=== PATIENT | female | born 1970 | race American Indian/Alaskan Native ===

== ENCOUNTER 2016-10-09 05:55 | Day surgery (SDC) | payer MEDICAID ==
[~2016-10-09 05:55] MED LIST: XYLOCAINE MPF 2% ONE
[2016-10-09] MEDS ORDERED: WATER FOR IRRIG STERILE IR ONE (07:01)
[2016-10-09] MEDS ORDERED: SUBLIMAZE ONE (07:20)
[2016-10-09] MEDS ORDERED: XYLOCAINE 1% 20 mL ONE (07:20)
[2016-10-09] MEDS ORDERED: DIPRIVAN 10 MG/ML IV ONE ×2 (07:20)
--- NOTE | 2016-10-09 07:22 | Anesthesia Consultation ---
Anesthesia Consult and Med Hx Date of service: 10/09/16 - Airway ROM Head & Neck: Adequate Mental/Hyoid Distance: Adequate Mallampati Class: Class III Intubation Access Assessment: Possibly Difficult - Pulmonary Exam CTA: Yes - Cardiac Exam Cardiac Exam: RRR - Pre-Operative Health Status ASA Pre-Surgery Classification: ASA3 Proposed Anesthetic Plan: General, MAC - Pulmonary Hx Smoking: No Hx Asthma: Yes (SEASONAL) - Cardiovascular System Hx Hypertension: Yes Hx Angina: No - Endocrine Hx Non-Insulin Dependent Diabetes: Yes Hx Thyroid Disease: No - Other Systems Hx Cancer: Yes Hx Obesity: Yes
--- NOTE | 2016-10-09 07:23 | Anesthesia Day of Surgery ---
Anesthesia Day of Surgery - Day of Surgery Patient Examined: Yes Patient H&P Reviewed: Yes Patient is NPO: Yes
--- NOTE | 2016-10-09 07:52 | Discharge Summary ---
Providers - Providers Date of discharge: 10/09/16 Attending physician: PREETI HERNANDEZ Hospitalization Condition: Stable Procedures: EGD Disposition: DISCHARGED TO HOME OR SELFCARE Core Measure Documentation - Palliative Care Palliative Care/ Comfort Measures: Not Applicable - Core Measures Any of the following diagnoses?: none Exam - Physical Exam Narrative exam: Unchanged from preop - Constitutional Vitals: Temp Pulse Resp BP Pulse Ox 98.1 F 79 16 136/83 97 10/09/16 07:21 10/09/16 07:21 10/09/16 07:21 10/09/16 07:21 10/09/16 07:21 Plan Activity: advance as tolerated Diet: low carbohydrate Special Instructions: no heavy lifting
[2016-10-09] MEDS ORDERED: NACL 0.9% 1000 ML 1,000 ML IV SCH (08:00)
--- NOTE | 2016-10-09 08:18 | Operative Report ---
Operative Report Operative Report: OPERATIVE REPORT - EGD DATE 10/09/2016 SURGERY: Upper endoscopy. SURGEON: Gregorio Stokes M.D. SALES REPRESENTATIVE [employer]: Rk Antonio M.D. PRE OP DX: dyspepsia POST OP DX: hiatal hernia TYPE OF ANESTHESIA: MAC. ESTIMATED BLOOD LOSS: None. COMPLICATIONS: None. Suboptimal distention of the stomach SPECIMENS REMOVED: None. FINDINGS: 1. Suboptimal distention of the stomach 2. hiatal hernia. 3. Otherwise, normal esophagus, stomach and first portion of duodenum. INDICATION FOR PROCEDURE: Patient is a 46-year-old female with a long history of morbid obesity. She is planned to have a weight loss procedure and is here for preoperative planning EGD. PROCEDURE DETAILS: After consent was reviewed, patient was taken back to the operating room where patient was placed in the left lateral decubitus position and a bite block was placed in the mouth. After a time-out was called, MAC anesthesia was initiated. I then passed the endoscope into her oropharynx, into her esophagus, visualized the entire esophagus, which was all within normal limits. I then advanced the scope to the stomach and the first portion of the duodenum. Then I proceed to slowly retrieved the scope but noticed that there was poor distention of the scope. Water seal and tubing was checked and exchanged. Scope blue button was exchanged as well. I then retroflexed the scope in the stomach and visualized the hiatus and I could see what appears to be a hiatal hernia but the poor distention impede a full assessment. I then desufflated the stomach and removed the endoscope. Patient tolerated procedure well and was transferred to recovery room in good and stable condition. We will proceed and order an upper GI contrast study on her to better assess the anatomy
[2016-10-09 08:47] VITALS: BP 158/76
--- NOTE | 2016-10-09 13:30 | Post Anesthesia Evaluation ---
- Post Anesthesia Evaluation Patient Participated: Yes Airway Patent: Yes Stable Respiratory Function: Yes Nausea/Vomiting: No Temp > 96.8F: Yes Pain Manageable: Yes Adequeate Hydration: Yes Anesthesia Complications: No Block Receding Appropriately: Not Applicable Patient on Ventilator: No
== END 2016-10-09 05:56 | disposition home or self-care (01) ==
LOC: GIO 05:55
PROVIDERS: ATTEND Specialist
DX: K31.89 Other diseases of stomach and duodenum (principal); K44.9 Diaphragmatic hernia without obstruction or gangrene; J45.909 Unspecified asthma, uncomplicated; I10 Essential (primary) hypertension; E10.9 Type 1 diabetes mellitus without complications; E66.01 Morbid (severe) obesity due to excess calories; Z68.43 Body mass index [BMI] 50.0-59.9, adult; Z85.3 Personal history of malignant neoplasm of breast; Z90.13 Acquired absence of bilateral breasts and nipples; Z90.710 Acquired absence of both cervix and uterus; Z79.899 Other long term (current) drug therapy; Z79.84 Long term (current) use of oral hypoglycemic drugs; Z83.3 Family history of diabetes mellitus; Z80.9 Family history of malignant neoplasm, unspecified
CPT/HCPCS: 43235; 82962; J2704; J3010; J7030

== ENCOUNTER 2016-10-11 10:25 | Outpatient (CLI) | payer MEDICAID ==
--- NOTE | 2016-10-11 14:42 | Fluoroscopy Report ---
UGI INDICATION: Dyspepsia. Preop for gastric bypass. Prior ventral hernia repair and small bowel surgery. COMPARISON: None similar at this institution. FINDINGS: Upper GI exam performed. Patient swallowed thick and thin barium without any difficulty and tolerated effervescent granules well. Belt Cutter radiograph demonstrates multiple surgical clips scattered throughout the abdomen. Right hemidiaphragm slightly elevated. Esophagus is normal in course and caliber. Normal peristalsis and mucosal pattern. No demonstrable hiatal hernia or gastroesophageal reflux. Normal gastric contours without evidence of peptic ulcer disease. Normal duodenal bulb and appearance of the C-loop as well. CONCLUSION: Normal upper GI exam, as described. Thank you for the opportunity to participate in this patient's care.
== END 2016-10-11 10:26 | disposition home or self-care (01) ==
LOC: FLUORO 10:25
PROVIDERS: ATTEND Specialist
DX: Z01.818 Encounter for other preprocedural examination (principal); K30 Functional dyspepsia; J98.6 Disorders of diaphragm
CPT/HCPCS: 74247

== ENCOUNTER 2016-10-16 09:00 | Inpatient (IN) | payer MEDICAID ==
--- NOTE | 2016-10-11 10:22 | Anesthesia Consultation ---
Anesthesia Consult and Med Hx Date of service: 10/16/16 - Airway Anesthetic Teeth Evaluation: Good ROM Head & Neck: Inadequate Mental/Hyoid Distance: Inadequate Mallampati Class: Class III Intubation Access Assessment: Possibly Difficult - Pulmonary Exam CTA: Yes - Cardiac Exam Cardiac Exam: RRR - Pre-Operative Health Status ASA Pre-Surgery Classification: ASA3 Proposed Anesthetic Plan: General - Pulmonary Hx Asthma: Yes () - Cardiovascular System Hx Hypertension: Yes (2011) - Gastrointestinal Hx Ulcer: Yes (? Crohns disease) - Endocrine Hx Non-Insulin Dependent Diabetes: Yes - Other Systems Hx Obesity: Yes (morbid) - Additional Comments Anesthesia Medical History Comments: clearence on chart
[2016-10-11 10:34] LABS: Basophils % (Auto) 0.7 % (0.0-1.8); Eosinophils % (Auto) 3.1 % (0.0-4.3); Hematocrit 40.7 % (30.3-42.9); Mean Corpuscular HGB Conc 32 % (30-34); Mean Corpuscular Hemoglobin 27 pg (28-32); Mean Corpuscular Volume 85 fl (79-97); Platelet Count 339 K/mm3 (140-440); Red Blood Count 4.78 M/mm3 (3.65-5.03); Red Cell Distribution Width 16.1 % (13.2-15.2); White Blood Count 10.7 K/mm3 (4.5-11.0)
[2016-10-11 10:49] LABS: Alanine Aminotransferase 26 units/L (7-56); Albumin 3.6 g/dL (3.9-5); Alkaline Phosphatase 71 units/L (35-129); Anion Gap 12 mmol/L; BUN/Creatinine Ratio 18.33; Bilirubin,Total 0.3 mg/dL (0.1-1.2); Blood Urea Nitrogen 11 mg/dL (7-17); Calcium 8.9 mg/dL (8.4-10.2); Carbon Dioxide 28 mmol/L (22-30); Chloride 99.8 mmol/L (98-107); Glucose 97 mg/dL (65-100); Potassium 3.8 mmol/L (3.6-5.0); Sodium 136 mmol/L (137-145); Total Protein 7.3 g/dL (6.3-8.2)
[~2016-10-16 09:00] MED LIST changes: +ANCEF/STERILE WATER 2 GM/20 ML 2 GM/20 ML SYRINGE IV NR; +APRESOLINE IV PRN; +DECADRON 12 MG in NACL 0.9% 50 ML IV NR; +FLAGYL 500 MG/100 ML 500 MG/100 ML BAG IV NR; +LOVENOX SUB-Q NR; +NACL 0.9% 1000 ML 1,000 ML IV SCH; +NORCO PO PRN; +PEPCID IV NR; +REGLAN IV PRN; +TRANSDERM-SCOP TD SCH; -XYLOCAINE MPF 2% ONE; +ZOFRAN IV PRN
--- NOTE | 2016-10-16 10:02 | Anesthesia Day of Surgery ---
Anesthesia Day of Surgery - Day of Surgery Patient Examined: Yes Patient H&P Reviewed: Yes Patient is NPO: Yes Cardiac Clearance: No Pulmonary Clearance: No
[2016-10-16] MEDS ORDERED: XYLOCAINE MPF 2% ONE (10:34)
[2016-10-16] MEDS ORDERED: SUBLIMAZE ONE (10:34)
[2016-10-16] MEDS ORDERED: ZOFRAN ONE ×2 (10:34→13:48)
[2016-10-16] MEDS ORDERED: DIPRIVAN 10 MG/ML IV ONE (10:34)
[2016-10-16] MEDS ORDERED: DECADRON ONE (10:34)
[2016-10-16] MEDS ORDERED: ZEMURON IV ONE (10:38)
[2016-10-16] MEDS ORDERED: QUELICIN ONE (10:38)
[2016-10-16] MEDS ORDERED: PEPCID IV NR (12:00)
[2016-10-16] MEDS ORDERED: FLAGYL 500 MG/100 ML 500 MG/100 ML BAG IV NR (12:00)
[2016-10-16] MEDS ORDERED: NACL 0.9% 1000 ML 1,000 ML IV SCH (12:00)
[2016-10-16] MEDS ORDERED: XYLOCAINE 1% 20 mL ONE (12:08)
[2016-10-16] MEDS ORDERED: MARCAINE-EPI 0.5%-1:200,000 INFILTRATI ONE ×2 (12:09→13:48)
[2016-10-16] MEDS ORDERED: NACL 0.9% IR ONE (13:48)
[2016-10-16] MEDS ORDERED: XYLOCAINE 1% 20 mL INFILTRATI ONE (13:48)
[2016-10-16] MEDS ORDERED: ePHEDrine SULFATE ONE (14:44)
[2016-10-16] MEDS ORDERED: CLORPACTIN WCS-90 IR ONE ×2 (14:48→14:57)
[2016-10-16] MEDS ORDERED: NACL 0.9% 1000 ML 1,000 ML ONE (15:27)
[2016-10-16] MEDS ORDERED: NEOSTIGMINE ONE (15:29)
[2016-10-16] MEDS ORDERED: ROBINUL ONE (15:29)
[2016-10-16] MEDS: SUBLIMAZE IV PRN ×2 (16:29→17:02)
[2016-10-16] MEDS: MYLICON PO PRN (17:26)
[2016-10-16 19:29] LABS: Hematocrit 43.4 % (30.3-42.9); Hemoglobin 13.5 gm/dl (10.1-14.3); Mean Corpuscular HGB Conc 31 % (30-34); Mean Corpuscular Hemoglobin 27 pg (28-32); Mean Corpuscular Volume 86 fl (79-97); Platelet Count 321 K/mm3 (140-440); Red Blood Count 5.07 M/mm3 (3.65-5.03); Red Cell Distribution Width 15.9 % (13.2-15.2); White Blood Count 16.7 K/mm3 (4.5-11.0)
[2016-10-16 19:57] LABS: Magnesium 1.9 mg/dL (1.7-2.3); Phosphorous 3.9 mg/dL (2.5-4.5)
[2016-10-16 19:58] LABS: Alanine Aminotransferase 116 units/L (7-56); Albumin 3.5 g/dL (3.9-5); Albumin/Globulin Ratio 0.9 %; Alkaline Phosphatase 96 units/L (35-129); Anion Gap 16 mmol/L; BUN/Creatinine Ratio 13.75; Bilirubin,Total 1.1 mg/dL (0.1-1.2); Blood Urea Nitrogen 11 mg/dL (7-17); Calcium 8.2 mg/dL (8.4-10.2); Carbon Dioxide 27 mmol/L (22-30); Chloride 97.6 mmol/L (98-107); Glucose 209 mg/dL (65-100); Potassium 3.9 mmol/L (3.6-5.0); Sodium 137 mmol/L (137-145); Total Protein 7.2 g/dL (6.3-8.2)
[2016-10-16 20:12] LABS: Basophils % (Manual) 0 % (0.0-1.8); Blastocytes % (Manual) 0 %; Eosinophils % (Manual) 0 % (0.0-4.3)
[2016-10-16 20:13] LABS: Diff Status Complete; RBC Morphology Normal
[2016-10-16] MEDS: MORPHINE IV PRN (20:59)
[2016-10-16] MEDS: LACTATED RINGERS 1,000 ML IV SCH (21:00)
[2016-10-16] MEDS: LOVENOX SUB-Q SCH (21:58)
[2016-10-16] MEDS ORDERED: TORADOL IV PRN (23:33)
[2016-10-17] MEDS: LACTATED RINGERS 1,000 ML IV SCH (01:55)
[2016-10-17] MEDS: MORPHINE IV PRN (05:36)
[2016-10-17] MEDS: MYLICON PO PRN (05:37)
--- NOTE | 2016-10-17 09:38 | Admit Criteria Form ---
Admission Criteria Documentation: AMBULATORY SURGERY EXCEPTION CRITERIA Ambulatory Surgery Exception Criteria ( Place 'X' for any and all applicable criteria): Surgery or procedure performed on ambulatory basis may require inpatient stay for[A] ANY ONE of the following(1)(2)(3)(4)(5)(6)(7)(8)(9): [X] I. A preoperative situation, condition, or finding that warrants inpatient stay as indicated by ANY ONE of the following: [] a) Inpatient care needed because of severity of a disease or condition rather than the surgery (eg, severe cardiac or respiratory disease, severe infection) (15) (16 ) (17) (18) [] b) Emergent procedure (eg, angioplasty for acute ischemia)(19) [] c) Complex surgical approach or situation as indicated by ANY ONE of the following(3): [] i) Open approach needed instead of usual endoscopic, transcatheter, or other less invasive procedure [] ii) Difficult approach because of previous operation [] iii) Airway monitoring required after open neck procedures(20)(21) [] iv) Large mass requiring unusually extensive dissection [] v) Additional complicating feature requiring inpatient care (eg, drain management)(22(23): [X] d) Major surgery in a pt with high anesthetic risk as indicated by ANY ONE of the following (2)(3)(5)(7)(8): [X] i) ASA risk class III or higher (severe systemic disease impairing function) [D] [] ii) Advanced age (eg, older than 85 years)(14)(24) [] iii) Symptomatic heart failure(25) [] iv) Symptomatic asthma or COPD(8)(21) [] v) Morbid obesity with hemodynamic or respiratory problems(20)( 21)(26)(27) [] vi) Obstructive sleep apnea(20)(21) [] vii) Former premature infants who are younger than 60 weeks [] viii) High risk for severe postoperative abnormalities (eg, severe postoperative hypocalcemia after parathyroidectomy for severe hyperparathyroidism)(27)( 28) [] ix) Unstable angina(25) [] e) Drug-related risk requiring inpatient stay as indicated by ANY ONE of the following(5)(10)(14)(32)(33) [] i) Procedure requires discontinuing drugs or other therapy (eg , antiarrhythmic medication, antiseizure medication), which necessitates inpatient observation or treatment.(18)(31) [] ii) Major surgery and high risk drug use as indicated by ANY ONE of the following: [] 1) Active abuse of cocaine or similar drug [] 2) Monoamine oxidase inhibitor use [] 3) Other drug identified as posing risk [] f) Inadequate outpatient care situation as indicated by ANY ONE of the following(5)(10)(14)(32)(33) [] i) Patient lives remote from medical facility and procedure has urgent complication potential, and temporary nearby residence cannot be arranged [] ii) Patient will have postprocedure incapacitation and inadequate assistance at home, or alternative level of care cannot be arranged. [] iii) Patient will have long general anesthesia or procedure side effect resolution time, and competent person to stay with patient on first postoperative night at home or alternative level of care cannot be arranged. []iv) Other inadequate outpatient situation that cannot be handled by other means [] II. A perioperative event, condition, or finding that warrants inpatient stay as indicated by ANY ONE of the following (1)(2)(3): [] a) Inadequate physiologic recovery: cardiovascular, respiratory, or hemodynamic status not normal or near preoperative baseline(18) [] b) Hemodynamic instability [] c) Patient not alert with near normal or baseline mental status [] d) Temperature not normal or as expected and not appropriate for outpatient treatment of condition [] e) Ambulatory or appropriate activity level status not yet achieved post procedure [E](34)(35)(36) [] f) Operative site not appropriate (eg, unexpected or excessive drainage or bleeding) [] g) Postoperative effects not resolved or adequately managed (eg, significant pain or vomiting not appropriate for outpatient or next level of care)(10)(12) [] h) Complicating features requiring inpatient care as indicated by ANY ONE of the following(37): [] i) Severe complications of procedure (eg, bowel injury, airway compromise, vascular injury,severe hemorrhage) [] ii) Extensive (eg, dissection far beyond usual scope of procedure ) or prolonged (eg, 120 minutes beyond usual) surgery needed requiring inpatient postoperative care [] iii) Conversion to an open or complex procedure that requires inpatient care (eg, open vs laparoscopic cholecystectomy, abdominal vs vaginal hysterectomy)(38) [] iv) Comorbid condition or test result identified during or post procedure that requires inpatient care (7) [] v) Malignant hyperthermia(30) [] vi) Other complicating feature requiring inpatient care(22)(23) Inpatient stay may be needed until ALL of the following are present (1)(2)(3)(4) (5)(6)(10)(14)(33)(40): []a) Physiologic recovery: cardiovascular, respiratory, and hemodynamic status normal or near preoperative baseline []b) Hemodynamic stability []c) Patient alert, with near normal or baseline mental status []d) Temperature appropriate: patient afebrile or temperature appropriate for outpt treatment of condition []e) Activity level appropriate: ambulatory or appropriate activity level post procedure []f) Operative site appropriate as indicated by ALL of the following: []i) Site dry or with expected drainage []ii) Any blood noted is as expected for procedure. []g) Postoperative effects resolved or managed as indicated by ALL of the following: []i) Pain management appropriate for outpatient (or next level of) care(10) []ii) Minimal nausea and vomiting: if present, successfully treated with oral medication(12) []iii) Headache, dizziness, or drowsiness (if present) are mild. []h) Voiding status acceptable as indicated by ANY ONE of the following: []i) Voiding spontaneously []ii) No voiding but instructions given for follow-up in 6 to 8 hours []iii) Urinary catheter in place, and instructions given for follow-up []i) Complicating features requiring inpatient care manageable at a lower level of care(37) []j) Comorbid conditions manageable at a lower level of care(37) The original [facility] content created by [facility] has been revised. The portions of the content which have been revised are identified through the use of italic text or in bold, and [facility] [employer] has neither reviewed nor approved the modified material. All other unmodified content is copyright [facility]. Please see references footnoted in the original [facility] edition 2016 Admission Criteria Met: Yes
[2016-10-17] MEDS: LOVENOX SUB-Q SCH (10:00)
[2016-10-17 10:47] LABS: Basophils % (Auto) 0.4 % (0.0-1.8); Hematocrit 38.1 % (30.3-42.9); Mean Corpuscular HGB Conc 31 % (30-34); Mean Corpuscular Hemoglobin 28 pg (28-32); Mean Corpuscular Volume 88 fl (79-97); Platelet Count 311 K/mm3 (140-440); Red Blood Count 4.36 M/mm3 (3.65-5.03); Red Cell Distribution Width 16.1 % (13.2-15.2); White Blood Count 9.4 K/mm3 (4.5-11.0)
[2016-10-17 11:03] LABS: Alanine Aminotransferase 361 units/L (7-56); Albumin 3.3 g/dL (3.9-5); Albumin/Globulin Ratio 0.9 %; Alkaline Phosphatase 138 units/L (35-129); Anion Gap 19 mmol/L; BUN/Creatinine Ratio 18.57; Bilirubin,Total 3.6 mg/dL (0.1-1.2); Blood Urea Nitrogen 13 mg/dL (7-17); Calcium 8.6 mg/dL (8.4-10.2); Carbon Dioxide 23 mmol/L (22-30); Chloride 100.2 mmol/L (98-107); Glucose 125 mg/dL (65-100); Potassium 4.7 mmol/L (3.6-5.0); Sodium 137 mmol/L (137-145); Total Protein 6.9 g/dL (6.3-8.2)
--- NOTE | 2016-10-17 17:31 | Discharge Summary ---
Providers - Providers Date of Admission: 10/16/16 09:02 Date of discharge: 10/17/16 Attending physician: PREETI HERNANDEZ Primary care physician: RAINA WILLIS Hospitalization Reason for admission: post op Condition: Stable Disposition: DISCHARGED TO HOME OR SELFCARE Core Measure Documentation - Palliative Care Palliative Care/ Comfort Measures: Not Applicable - Core Measures Any of the following diagnoses?: none Exam - Physical Exam Narrative exam: NAD, VSS Lungs CTA b/l Heart RRR Abd soft, ND, TTP around wounds. SELAM drain in place with serosang drainage Neuro AAox3 - Constitutional Vitals: Temp Pulse Resp BP Pulse Ox 98.3 F 100 H 16 118/71 100 10/17/16 12:00 10/17/16 12:00 10/17/16 12:00 10/17/16 12:00 10/17/16 10:22 Plan Activity: advance as tolerated Diet: other Wound: keep clean and dry Special Instructions: no heavy lifting Follow up with: RAINA WILLIS MD [Primary Care Provider] - 7 Days
[2016-10-17 18:05] VITALS: BP 108/69
--- NOTE | 2016-10-17 18:08 | Operative Report ---
PREOPERATIVE DIAGNOSES: Morbid obesity, hypertension. 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 The abdominal cavity was inaccessible and therefore suffered from an early termination of the procedure. BRIEF HISTORY AND PHYSICAL: This patient is a 46-year-old female who came to me primarily because of the problems of morbid obesity and associated comorbid conditions. She had had previous multiple abdominal surgeries and therefore, I explained to her previously that there may be an issue to be getting inside and that I would never do any more harm than good and if I could not get in, so that I would abort the procedure. She understood. SURGEON: Gregorio Stokes M.D. TMD TEACHER ASSISTANT: Zach Mcgee. ANESTHESIA: General. DESCRIPTION OF PROCEDURE: The patient was placed on the operating table in dorsal supine position and following satisfactory induction of general anesthesia, the abdomen was prepped using Hibiclens and draped in sterile fashion. Then, using a sharp skin knife, the patient had a midline incision and therefore, we found an ulcer ____, and in the subcostal region, we placed a small Veress needle into the subcostal region and into the free abdominal space that we felt was free. After this under direct vision, a 5 mm scope was then placed into the trocar, and through direct vision, this blunt tip trocar was then pressed inside the incision through the fat through the muscle and into the abdominal cavity. We entered into the abdominal cavity and placed within 5 mm 45-degree scope inside. We then tried to inspect the intra-abdominal contents. When entering inside the abdominal cavity, immediately noted that the patient had a little bit of bowel leakage from penetration of the liver with a Veress needle and this was then indeed noted. However, looking around the rest of the abdominal cavity, we could not see anything because of the patient's previous surgery and malignant intraabdominal adhesions. We tried blunt dissections as to try to find another site that I could pass a second trocar to help me takedown some of the adhesions and I was unsuccessful in this particular maneuver. We then decided to try to find another site in the opposite side to enter inside the abdominal cavity and we could not. During this time because of the increasing intra-abdominal pressure, the anesthesiologist began to have problems with the blood pressure and with the oxygen saturation, and the abdomen became increasingly distended and as it became increasingly distended, we asked the anesthesiologist how the patient was doing and that the oxygen saturation kept dropping. We therefore decided that this patient needed to be opened just to decompress because I could not get the intra-abdominal CO2 out because of the multiple pockets of adhesive disease, though that was trapping the intra-abdominal CO2. Therefore, through her old incision, I made an incision from the umbilicus upward cephalad and with a sharp scissor dissection going down to the fascia, I entered inside the abdominal cavity bluntly. We tried using blunt dissection to free up the adhesions as the adhesions were densely stuck to the undersurface of this scar. This adhesiolysis with finger dissection was continued until we found a pocket that was relatively free. We got into the abdominal cavity and decompressed the abdominal cavity of the CO2, which allowed the patient's oxygen saturation and blood pressure to stabilize. Once the patient had this portion of the abdominal cavity opened, I wanted to see if I can do any sort of dissection just to identify the stomach. We dissected and dissected it just bluntly with finger dissection and I could not even identify the stomach well enough to even proceed in an open fashion to perform the sleeve gastrectomy. We therefore tried to identify the liver and I could feel the liver with my hand and the gallbladder, we would squeeze the gallbladder and noticed no evidence of any further bile. However, I did notice on the entry that the patient had some bile stained from the liver penetration from the Veress needle. We therefore placed a drain into this region around the gallbladder and around the liver just to make sure that the patient did not accumulate a biloma and this was brought out through the original trocar site from the patient's right hand side. Since this was a procedure that was fraught with danger from not only on anesthesia point of view, we decided that this was not the way that the patient needed to undergo as far as weight loss is concerned. Therefore, aborted the procedure and therefore proceeded to close. We reapproximated the fascia using a running suture of #1 PDS and then reapproximated the skin using a running subcuticular suture of 4-0 Monocryl. The drain was secured in place with interrupted simple suture of 2-0 nylon. The procedure was terminated. Sterile dressings were applied to the wound. The patient tolerated the procedure relatively poorly, but then stabilized and was sent to the recovery room in stable condition. I called the patient's family, discussed the condition with the patient's family and discussed what my findings and they understood that I could not proceed with the planned procedure because of the possible threat to her life. They understood and were pleased that I did not proceed. The patient will subsequently be discharged to home when she is stable in the next day or so. JOB# [id number] HIRO/REYMUNDO
== END 2016-10-17 17:10 | disposition home or self-care (01) | DRG 629 ==
LOC: 3A 09:02 → 2B-SURG 14:50
PROVIDERS: ADMIT Specialist; ATTEND Specialist
PROC: 0D9W00Z Drainage of Peritoneum with Drainage Device, Open Approach (ICD-10-PCS; principal; 2016-10-16)
PROC: 0DJ64ZZ Inspection of Stomach, Percutaneous Endoscopic Approach (ICD-10-PCS; 2016-10-16)
PROC: 0DNW0ZZ Release Peritoneum, Open Approach (ICD-10-PCS; 2016-10-16)
DX: E66.01 Morbid (severe) obesity due to excess calories (principal); K50.90 Crohn's disease, unspecified, without complications; Z68.43 Body mass index [BMI] 50.0-59.9, adult; I10 Essential (primary) hypertension; K66.0 Peritoneal adhesions (postprocedural) (postinfection); E10.9 Type 1 diabetes mellitus without complications; Z87.442 Personal history of urinary calculi; Z83.3 Family history of diabetes mellitus; Z80.9 Family history of malignant neoplasm, unspecified; Z85.3 Personal history of malignant neoplasm of breast; Z90.13 Acquired absence of bilateral breasts and nipples; Z90.710 Acquired absence of both cervix and uterus; Z91.040 Latex allergy status; Z91.048 Other nonmedicinal substance allergy status
CPT/HCPCS: 36415; 80053; 82962; 83735; 84100; 85007; 85025; 94760; J0330; J0690; J1100; J1650; J1885; J2270; J2405; J2704; J2710; J2765; J3010; J7030; J7120